=== PATIENT | male | born 1955 | race Caucasian/White ===

== ENCOUNTER 2019-01-17 15:42 | Outpatient (CLI) | payer MEDICARE, OTHER ==
--- NOTE | 2019-01-17 15:59 | RAD ---
Exam: XR Wrist 3 Lt View STANDARD HISTORY: Left wrist pain after a fall. Left wrist injury. COMPARISON: None FINDINGS: Mild degenerative changes are seen involving the carpal bones laterally. 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 IMPRESSION: No acute osseous abnormality is identified. If symptoms persist, follow-up imaging is advised.
== END 2019-01-17 15:43 | disposition home or self-care (01) ==
LOC: SCSRAD 15:42
PROVIDERS: ATTEND Family Medicine
DX: M25.532 Pain in left wrist (principal)

== ENCOUNTER 2019-01-20 10:01 | Outpatient (CLI) | payer MEDICARE ==
--- NOTE | 2019-01-20 10:34 | RAD ---
LEFT WRIST 3 VIEWS: HISTORY: Left wrist pain, injury FINDINGS: No acute fracture or dislocation is identified. Mild degenerative changes are again seen as on 019. If symptoms do not improve, a follow-up exam should be obtained in 7-10 days.
== END 2019-01-20 10:02 | disposition home or self-care (01) ==
LOC: SCSRAD 10:01
PROVIDERS: ATTEND Family Medicine
DX: M25.532 Pain in left wrist (principal)

== ENCOUNTER 2025-01-04 08:59 | Outpatient (CLI) | payer MEDICARE ==
[2025-01-04 10:06] LABS: Hematocrit 49.7 % (42.0-52.0); Hemoglobin 16.9 g/dL (14.0-18.0); Mean Corpuscular Hemoglobin 32.8 pg (27.0-31.0); Mean Corpuscular Volume 96.5 fL (78.0-98.0); Platelet Count 214 10x3/uL (130-400); Red Blood Cell (RBC) Count 5.15 mill/uL (4.70-6.10); White Blood Cell (WBC) Count 11.43 10x3/uL (4.8-10.8)
[2025-01-04 10:10] LABS: INR-International Normal Ratio 1.0; Prothrombin Time 12.9 sec (12.0-14.7)
[2025-01-04 10:11] LABS: PTT 28.0 sec (22.9-36.1)
[2025-01-04 10:16] LABS: Anion Gap 11 mmol/L (10-20); BUN (Urea Nitrogen) 17 mg/dL (8.4-25.7); Calc. Creatinine Clearance 0 mL/min (70-130); Calcium 9.6 mg/dL (7.8-10.44); Carbon Dioxide 28 mmol/L (23-31); Chloride 103 mmol/L (98-107); Glucose 109 mg/dL (83-110); Potassium 4.0 mmol/L (3.5-5.1); Sodium 138 mmol/L (136-145)
[2025-01-04 10:28] LABS: Bacteria/HPF None Seen HPF (None Seen); Glucose, Urine (Dipstick) Normal (Negative); Leukocyte Negative Leu/uL (Negative); Protein, Urine (Dipstick) Negative (Neg-Trace); RBC/HPF None Seen HPF (0-3); Specific Gravity, Urine 1.017 (1.002-1.036); WBC/HPF 0-3 HPF (0-3)
[2025-01-04 11:27] LABS: #Basophils 0.04 10x3/uL (0.0-0.2); #Eosinophils 0.06 10x3/uL (0.0-0.7); #Monocytes 0.47 10x3/uL (0.11-0.59); #Neutrophils 4.08 10x3/uL (1.40-6.50); %Basophils 0.3 % (0.0-1.0); %Eosinophils 0.4 % (0.0-10.0); %Lymphocytes 59.0 % (21.0-51.0); %Monocytes 4.1 % (0.0-10.0); %Neutrophils 35.8 % (42.0-75.0); Plasma Cells 0 % (0-0); Platelet Adequacy Comment Appears Adequate; Polychromasia SLIGHT = 2-3 cells (100X) (0-2/hpf); Smudge Cells MODERATE
== END 2025-01-04 09:00 | disposition home or self-care (01) ==
LOC: LABBT 08:59
PROVIDERS: ATTEND Urology
DX: Z01.818 Encounter for other preprocedural examination (principal); R97.20 Elevated prostate specific antigen [PSA]; Z80.42 Family history of malignant neoplasm of prostate
CPT/HCPCS: 71046; 80048; 81001; 84153; 85025; 85610; 85730; 87086

== ENCOUNTER 2025-01-17 05:51 | Day surgery (SDC) | payer MEDICARE ==
[2025-01-04 09:17] VITALS: BMI 25.2
[2025-01-17] MEDS ORDERED: cefTRIAXone (ROCEPHIN) 2 GM VIAL ONE (06:41)
[2025-01-17] MEDS ORDERED: LevoFLOXacin D5W 500 mg (100 mL) BAG ONE (06:41)
[2025-01-17 06:58] LABS: Hematocrit 46.8 % (42.0-52.0); Hemoglobin 15.7 g/dL (14.0-18.0); Mean Corpuscular Hemoglobin 32.0 pg (27.0-31.0); Mean Corpuscular Volume 95.5 fL (78.0-98.0); Platelet Count 185 10x3/uL (130-400); Red Blood Cell (RBC) Count 4.90 mill/uL (4.70-6.10); White Blood Cell (WBC) Count 11.76 10x3/uL (4.8-10.8)
[2025-01-17] MEDS ORDERED: fentaNYL PF 100 MCG/2 ML SYRINGE ONE (07:03)
[2025-01-17 12:00] LABS: Giant Platelets 1.0 % (0-5); Nucleated RBC (Manual Ct) 1 % (0); Smudge Cells 1.0 %
[2025-01-17 12:04] LABS: Platelet Adequacy Comment Platelets Normal
[2025-01-17 12:05] LABS: Burr Cells SLIGHT = 2-5 cells (100X) (0-1/hpf)
== END 2025-01-17 09:30 | disposition home or self-care (01) ==
LOC: SDC 05:51
PROVIDERS: ATTEND Urology
PROC: 0VB03ZX Excision of Prostate, Percutaneous Approach, Diagnostic (ICD-10-PCS; principal; 2025-01-17)
DX: C61 Malignant neoplasm of prostate (principal); N40.0 Benign prostatic hyperplasia without lower urinary tract symptoms; N52.9 Male erectile dysfunction, unspecified; E78.1 Pure hyperglyceridemia; I10 Essential (primary) hypertension; E78.2 Mixed hyperlipidemia; Z88.5 Allergy status to narcotic agent; Z88.8 Allergy status to other drugs, medicaments and biological substances; Z79.899 Other long term (current) drug therapy
CPT/HCPCS: 55700; 76872; 85025; 86850; 86900; 86901; J0696; J1956; J2704; 36415; 88305; 88342; 88344; G0416